=== PATIENT | female | born 1970 | race Caucasian/White ===

== ENCOUNTER 2023-09-21 13:00 | Outpatient (CLI) | payer OTHER, SELFPAY ==
--- NOTE | 2023-09-21 12:57 | MR_ITS ---
WS: [id number] MRI RIGHT KNEE NONCONTRAST TECHNIQUE: Axial PD, coronal PD fat sat, coronal PD, sagittal PD, and sagittal PD fat-sat images obta ined. CLINICAL INFORMATION: PAIN COMPARISON: None. FINDINGS: Distal quadriceps and patella tendons are intact. Increased T1 and T2 signal with thickening involvin g the ACL compatible with mucoid degeneration. ACL appears intact. PCL appears intact. Medial and lateral collateral ligaments appear intact. Irregularity with increased signal in the prox imal popliteus suspicious for partial tear. Small amount of edema along the arcuate ligament at the f ibula head. Recommend correlation for posterolateral corner injury. Fibular head appears intact. No v isualized avulsion. Mild chondromalacia patella. Medial and patellar retinaculum appear intact. Horizontal tear involving the posterior horn medial meniscus extending to the articular surface. Norm al lateral meniscus. Normal bone marrow signal in the femoral condyles and tibial plateau. Small para meniscal or ganglion cyst along the intercondylar notch abutting the distal ACL insertion and root of the lateral meniscus. Small cyst measures 5 mm with adjacent tiny satellite cyst. MR/MR knee RT wo con* [id number] IMPRESSION: 1. Mucoid degeneration involving the ACL which appears intact. PCL appears int act. 2. Horizontal tear involving the posterior horn medial meniscus extending to t he articular surface. 3. Slight irregularity and increased signal involving the popliteus at the svitlana gin with a small amount of fluid and edema along the arcuate ligament at the fi bular head. Recommend correlation for posterolateral corner injury. Biceps femo ris and lateral collateral ligaments appear intact. 4. Small 5 mm ganglion or parameniscal cyst near the distal insertion of the A CL and adjacent to the root of the lateral meniscus. Adjacent tiny satellite cy st. 5. No other acute findings. [facility] grading: grade II: blister-like swelling/fraying of articular cartila ge extending to surface
== END 2023-09-21 13:01 | disposition home or self-care (01) ==
PROVIDERS: Family Provider Physician Assistant; Visit Provider Orthopaedic Surgery
DX: S83.241A Other tear of medial meniscus, current injury, right knee, initial encounter (principal); Y99.9 Unspecified external cause status
CPT/HCPCS: 73721